=== PATIENT | female | born 1970 | race Two or more races ===

== ENCOUNTER 2017-12-11 08:55 | Outpatient (CLI) | payer OTHER | END 2017-12-11 09:00 | disposition home or self-care (01) | LOC: MAMO-SONO 08:55 | DX: Z12.31 Encounter for screening mammogram for malignant neoplasm of breast (principal); N64.89 Other specified disorders of breast; R74.0 Nonspecific elevation of levels of transaminase and lactic acid dehydrogenase [LDH]; E04.0 Nontoxic diffuse goiter ==

== ENCOUNTER 2023-02-09 12:04 | Outpatient (CLI) | payer OTHER | END 2023-02-09 12:06 | disposition home or self-care (01) | LOC: SONOGRAMA 12:04 | PROVIDERS: ATTEND Pathology Anatomic Pathology | DX: D34 Benign neoplasm of thyroid gland (principal); E04.9 Nontoxic goiter, unspecified ==